=== PATIENT | male | born 2000 | race Hispanic/Latino ===

== ENCOUNTER 2022-06-02 08:36 | Emergency (ER) | payer MEDICAID ==
[~2022-06-02] VITALS: Ht 170.2 cm; Wt 124.8 kg
[2022-06-02] MEDS ORDERED: IBUP-2077 PO (09:10)
[2022-06-02] MEDS ORDERED: NIRM1TAB5 PO (09:10)
[2022-06-02 09:22] VITALS: BP 126/74
[2022-06-02] MEDS ORDERED: IBUPROFEN 800 MG TAB PO ONE (09:30)
== END 2022-06-02 09:35 | disposition home or self-care (01) ==
LOC: EDH 08:36
DX: U07.1 COVID-19 (principal)
CPT/HCPCS: 99283; 87635; 87804 ×2; C9803

== ENCOUNTER 2022-10-14 20:46 | Emergency (ER) | payer MEDICAID ==
[~2022-10-14] VITALS: Ht 170.2 cm; Wt 127.0 kg
[~2022-10-14 20:46] MED LIST: IBUP-2077 PO; NIRM1TAB5 PO
[2022-10-14 20:50] VITALS: BP 124/90
[2022-10-14] MEDS ORDERED: CETI10TA87 PO (22:01)
[2022-10-14] MEDS ORDERED: FLUT16H NASAL (22:01)
== END 2022-10-14 22:06 | disposition home or self-care (01) ==
LOC: EDH 20:46
DX: J30.2 Other seasonal allergic rhinitis (principal); Z20.822 Contact with and (suspected) exposure to COVID-19
CPT/HCPCS: 99283; 87635; 87880; 87804 ×2; C9803

== ENCOUNTER 2023-05-05 14:40 | Emergency (ER) | payer MEDICAID ==
[~2023-05-05] VITALS: Ht 167.6 cm; Wt 126.1 kg
[~2023-05-05 14:40] MED LIST changes: +CETI10TA87 PO; +FLUT16H NASAL
[2023-05-05] MEDS ORDERED: AMOX1TAB16 PO (15:38)
[2023-05-05] MEDS ORDERED: IBUP-2077 PO (15:38)
[2023-05-05 15:47] VITALS: BP 116/77; PULSE 118; RESP 19; O2SAT 95
[2023-05-05 15:56] LABS: SARS-CoV-2, RNA, NAAT NEGATIVE SARS CoV-2 (NEGATIVE)
[2023-05-05 16:05] LABS: INFLUENZA TYPE B Negative For Type B (NEGATIVE)
[2023-05-05 16:08] LABS: INFLUENZA TYPE A Positive For Type A (NEGATIVE); RAPID GROUP A STREP positive (NEGATIVE)
== END 2023-05-05 15:49 | disposition home or self-care (01) ==
LOC: EDH 14:40
DX: J03.90 Acute tonsillitis, unspecified (principal); R50.9 Fever, unspecified; Z20.822 Contact with and (suspected) exposure to COVID-19
CPT/HCPCS: 87635; 87804; 87880

== ENCOUNTER 2024-09-08 09:44 | Emergency (ER) | payer MEDICAID ==
[~2024-09-08] VITALS: Ht 175.3 cm; Wt 130.4 kg
[~2024-09-08 09:44] MED LIST changes: +AMOX1TAB16 PO
--- NOTE | 2024-09-08 10:22 | ERN ---
General Chief Complaint: Other Problems Stated Complaint: HEMMORHOID Time Seen by MD: 09:50 Source: patient History of Present Illness Initial Comments PATIENT IS A 24-YEAR-OLD MALE COMING IN TO BE EVALUATED FOR RECTAL DISCOMFORT. PATIENT STATES THAT IT HAS BEEN GROUP FOR TWO DAYS. HE STATES HE NOTICED A "LUMP" NEXT TO HIS ANUS TWO DAYS AGO. Allergies: Coded Allergies: No Known Allergies (Unverified Allergy, Unknown, 06/02/22) Home Meds Active Scripts Ibuprofen (Ibuprofen 800 mg Tab) 800 Mg Tab, 800 MG PO Q8H PRN for fever or pain, #30 TAB 0 Refills Prov:FANNIE GERMAIN NP 05/05/23 Amoxicillin/Potassium Clav (Amox Tr-K Clv 875-125 mg Tab) 875 Mg-125 Mg Tablet, 1 EACH PO BID for 10 Days, #20 TAB 0 Refills Prov:FANNIE GERMAIN LOAD BUILDER 05/05/23 Cetirizine HCl (Cetirizine HCl) 10 Mg Tab.chew, 10 MG PO DAILY for 30 Days, #30 TAB.CHEW Prov:ROXANN GOLDEN NP 10/14/22 Fluticasone Propionate (Flonase Nasal [place]) 50 Mcg/[place], 50 MCG NASAL DAILY for 30 Days, #1 BOTTLE Prov:ROXANN GOLDEN NP 10/14/22 Nirmatrelvir/Ritonavir (Paxlovid 150-100 mg Pack (Eua)) 1 Each Tablet, 1 EACH PO BID for 5 Days, #30 TAB Take 300mg of Nirmatrelvir and 100mg or Ritonavir in the morning and also at night for 5 days. Prov:SARAH BANEGAS MD 06/02/22 Ibuprofen (Ibuprofen 800 mg Tab) 800 Mg Tab, 800 MG PO Q8H PRN for fever or pain, #30 TAB 0 Refills Prov:SARAH BANEGAS MD 06/02/22 Past Medical History Past Medical History: No Pertinent History Past Surgical History: None ROS Dictation CONSTITUTIONAL: NO CHILLS, NO FEVER, NO WEAKNESS, NO DIAPHORESIS, NO MALAISE. HEAD/FACE: NO SIGNS OF TRAUMA. EENT: NO EYE PAIN, NO BLURRED VISION, NO TEARING, NO DOUBLE VISION, NO EAR PAIN, NO EAR DISCHARGE, NO NOSE PAIN, NO NASAL CONGESTION, NO THROAT PAIN, NO THROAT SWELLING, NO MOUTH PAIN. RESPIRATORY: NO COUGH, NO ORTHOPNEA, NO SOB, NO STRIDOR, NO WHEEZING. CARDIOVASCULAR: NO CHEST PAIN, NO EDEMA, NO PALPITATIONS, NO SYNCOPE. GASTROINTESTINAL/ABDOMINAL: NO ABDOMINAL PAIN, NO CONSTIPATION, NO DIARRHEA, NO NAUSEA, NO VOMITING. GENITOURINARY: NO ABNORMAL DISCHARGE, NO DYSURIA, NO FREQUENT URINATION, NO HEMATURIA. NO COMPLAINTS OF PAIN IN THE GENITALS. MUSCULOSKELETAL: NO BACK PAIN, NO GOUT, NO JOINT PAIN, NO JOINT SWELLING, NO MUSCLE PAIN, NO MUSCLE STIFFNESS, NO NECK PAIN. INTEGUMENTARY: NO CHANGE IN COLOR, NO CHANGE IN HAIR/NAILS, NO DRYNESS, NO LESION, NO LUMPS, NO RASH. NEUROLOGICAL/PSYCH: NO ANXIETY, NOT DEPRESSED, NO EMOTIONAL PROBLEM, NO HEADACHE, NO NUMBNESS, NO PRE-EXISTING DEFICIT, NO HISTORY OF SEIZURES, NO TREMORS, NO WEAKNESS. HEMATOLOGIC/LYMPHATIC: NOT ANEMIC, NO HISTORY OF BLOOD CLOTS, NO APPARENT BLEEDING, NO BRUISING, GLANDS NOT SWOLLEN. ALL SYSTEMS NEGATIVE, EXCEPT NOTED. Physical Exam Physical Exam Dictation VITAL SIGNS: REVIEWED. GENERAL APPEARANCE: ALERT, ORIENTED X3, NO ACUTE DISTRESS, OBESE. HEAD AND FACE: NON-TRAUMATIC. EYES: PERRL, PINK CONJUNCTIVAS, EYELID NO TRAUMA, ANTERIOR CHAMBER CLEAR. EARS: PINNAS INTACT AND NO SIGNS OF TRAUMA OR ERYTHEMA. EAR CANALS CLEAR AND NO DISCHARGE. TMS NO ERYTHEMA. NOSE: NO DISCHARGE, NO BLEEDING. OROPHARYNX: MOUTH NORMAL, TEETH NO CARIES, TONGUE PINK. PHARYNX CLEAR, NO ERYTHEMA. TONSILS NO EXUDATES, NO ABSCESSES NOTED. MUCOUS MEMBRANE MOIST. NECK: SUPPLE, NON-TENDER, NO THYROMEGALY, NO MASSES, NO JVD, NO BRUITS. BREAST: DEFERRED. CHEST: NO TENDERNESS, NO CREPITUS, NO PARADOXICAL MOVEMENT, NO RETRACTIONS. LUNGS: CLEAR, WELL-VENTILATED, SYMMETRIC, NO RALES, NO WHEEZING, NO RHONCHI, NO STRIDOR, GOOD BREATH SOUNDS BILATERALLY. HEART: REGULAR RATE, REGULAR RHYTHM, NO MURMUR, NO GALLOPS. VASCULAR: NO PERIPHERAL EDEMA. ABDOMEN: SOFT, POSITIVE BOWEL SOUNDS, NONDISTENDED, NO GUARDING, NONTENDER, NO REBOUND, NO MASSES NO HEPATOMEGALY, NO SPLENOMEGALY, NO LOWRY'S SIGN, NO HERNIAS. RECTAL: CHAPERONED BY NURSE HEMORRHOID GENITAL: DEFERRED. NEUROLOGICAL: NORMAL SPEECH, GROSS MOTOR FUNCTION INTACT, GROSS SENSORY FU NCTION INTACT. MUSCULOSKELETAL: NECK NONTENDER, FULL RANGE OF MOTION, BACK NONTENDER, FULL RANGE OF MOTION. EXTREMITIES: NONTENDER, FULL RANGE OF MOTION. SKIN: COLOR PINK, DRY, NO TURGOR, NO RASH, NO LACERATIONS, NO ABRASIONS, NO CONTUSIONS. LYMPHATICS: DEFERRED. Results Laboratory and Microbiology Labs Reviewed?: Yes MDM MDM: DIFFERENTIAL DIAGNOSIS: EXTERNAL HEMORRHOID, HEMORRHOID, ABSCESS, RATIONALE: TESTS CONSIDERED AND ORDERED SECONDARY TO SHARED DECISION MAKING INCLUDE: PREVIOUS OUTSIDE RECORDS REVIEWED: OLD ER VISITS. RISK OF COMPLICATION AND/OR MORBIDITY OR MORTALITY OF PATIENT MANAGEMENT: NONE PATIENT IS A 24-YEAR-OLD MALE COMING IN TO BE EVALUATED FOR PERIRECTAL PAIN. ON PHYSICAL EXAM THERE IS A HIM AT PRESENT. CHAPERONED BY NURSE. PATIENT WILL BE DISCHARGED IN STABLE CONDITION I DID NOT ADVISED HIM APPROPRIATE FOLLOW UP WITH PCP AND/OR [employer]. ED Course Vital Signs Date Time Temp Pulse Resp B/P (MAP) Pulse Ox O2 Delivery O2 Flow Rate FiO2 09/08/24 09:45 98.2 96 18 134/86 97 Room Air 0 DX & DISP Disposition: Discharge Departure Impression: Primary Impression: External hemorrhoid Condition: Stable Scripts Phenyleph/Pramoxin/Glycr/W.pet (Preparation H Cream) 0.25 %-1 % Cream..g. 1 APPL TP BID for 30 Days, #51 GM 0 Refills Prov: BARBY HAMMER MD 09/08/24 Additional Instructions: FOLLOW-UP WITH PRIMARY CARE PROVIDER IN 1 TO 2 DAYS. TAKE MEDICATIONS DI RECTED HERE IN THE EMERGENCY ROOM. OKAY TO CONTINUE HOME MEDICATIONS UNLESS OTHERWISE DISCUSSED DURING YOUR VISIT IN THE EMERGENCY ROOM TODAY. RETURN TO YOUR NEAREST EMERGENCY ROOM IF SYMPTOMS WORSEN OR IF THERE IS NO IMPROVEMENT. CALL 911 IF YOU NEED IMMEDIATE ASSISTANCE. TAKE TYLENOL [id number] NEEDED AND IF NO CONTRAINDICATIONS ARE PRESENT. INCREASE ORAL HYDRATION. A WOUND CULTURE OR URINE CULTURE WAS ORDERED HERE IN THE EMERGENCY ROOM DEPARTMENT PLEASE FOLLOW-UP WITH PRIMARY CARE PROVIDER AND ADVISE THEM TO GET REPEAT PORTS FROM OUR FACILITY. IF YOU HAD ANY OSVALDO WRAP/SPLINTS THAT WERE APPLIED HERE, PLEASE DO NOT REMOVE THEM UNTIL YOU SEE YOUR PRIMARY CARE OR SPECIALTY. REFERRALS: Referrals: SHIREEN MILLER (PCP) SUSANNE BAUM MD Time of Disposition: 10:59 BARBY HAMMER MD Sep 08, 2024 10:21
[2024-09-08] MEDS ORDERED: PHEN26CR2 TP (11:04)
[2024-09-08 11:06] VITALS: BP 129/84; PULSE 84; RESP 19; TEMP 98.6; O2SAT 99
== END 2024-09-08 11:10 | disposition home or self-care (01) ==
LOC: EDH 09:44
DX: K64.4 Residual hemorrhoidal skin tags (principal)
CPT/HCPCS: 99282